=== PATIENT | male | born 1965 | race Two or more races ===

== ENCOUNTER 2019-12-12 15:30 | Outpatient (CLI) | payer OTHER ==
[~2019-12-12] VITALS: Ht 175.3 cm; Wt 82.6 kg
[2019-12-12] MEDS ORDERED: PRILOSEC OTC20 MG PO (16:05)
== END 2019-12-16 13:51 | disposition home or self-care (01) ==
LOC: OFIC 805 15:30
PROVIDERS: ATTEND Otolaryngology
DX: R49.0 Dysphonia (principal); R05 Cough; K21.0 Gastro-esophageal reflux disease with esophagitis; R09.81 Nasal congestion